=== PATIENT | male | born 1960 | race Caucasian/White ===

== ENCOUNTER 2017-06-27 04:49 | Inpatient (IN) | payer BC, OTHER ==
[2017-05-30 11:48] VITALS: Ht 162.6 cm; Wt 80.1 kg
--- NOTE | 2017-05-30 12:26 | PAT Medication Instructions ---
Service Date May 30, 2017. Current Home Medication List Creatine (Bulk) (Creatine), 1 DOSE PO BID Glutamine (Glutamine), 1 DOSE PO TID Multiple Vitamin (Multi-Vitamin Daily), 1 TAB PO QAM Protein (Protein), Unknown Dose TID [Bcaa's], 1 DOSE PO BID [Pre Work Out ], 1 DOSE PO DAILY [[Nitrogen oxide], 1 DOSE PO daily Medication Instructions For Your Scheduled Surgery - Hold the following medications 2 weeks prior to surgery: Creatine (Bulk) (Creatine), 1 DOSE PO BID Glutamine (Glutamine), 1 DOSE PO TID - Hold the following medications 7 days prior to surgery: [Bcaa's], 1 DOSE PO BID [Pre Work Out ], 1 DOSE PO DAILY [[Nitrogen oxide], 1 DOSE PO daily - Hold the following medications the morning of surgery: Multiple Vitamin (Multi-Vitamin Daily), 1 TAB PO QAM Protein (Protein), Unknown Dose TID - Take the following medications as scheduled the night before surgery: Protein (Protein), Unknown Dose TID If you have any questions please call us at [phone] or [phone] or [phone]
[2017-05-30 13:10] LABS: BASO % 0.4 %; BASO ABS # 0.02 K/uL (0-0.2); EOS % 4.2 %; EOS ABS # 0.22 K/uL (0-0.5); HEMATOCRIT 44.3 % (42-52); IG# 0.02 K/uL (0.00-0.02); LYMPH % 28.3 %; LYMPH ABS # 1.49 K/uL (1.2-3.4); MEAN CELL VOLUME 91.2 fL (80-100); MEAN CORPUSCULAR HEMOGLOBIN 32.9 pg (25-34); MEAN CORPUSCULAR HGB CONC 36.1 g/dl (32-36); MEAN PLATELET VOLUME 9.4 fL (7.4-10.4); MONO % 8.7 %; MONO ABS # 0.46 K/uL (0.11-0.59); NEUT ABS # 3.06 K/uL (1.4-6.5); PLATELET COUNT 219 K/uL (130-400); RED CELL DISTRIBUTION WIDTH CV 13.4 % (11.5-14.5); RED CELL DISTRIBUTION WIDTH SD 44.5 fL (36.4-46.3); WHITE BLOOD COUNT 5.27 K/uL (4.8-10.8)
--- NOTE | 2017-05-30 13:16 | DIAGNOSTIC IMAGING REPORT ---
CHEST 2 VIEWS ROUTINE CLINICAL HISTORY: Preoperative chest COMPARISON STUDY: 10/29/2014 FINDINGS: The cardiac and mediastinal contours are normal. There is no evidence of focal pulmonary consolidation. There is no evidence of failure. No pleural effusions are visualized.[ Chronic changes involve the chromic clavicular joints, possibly postsurgical. IMPRESSION: No active disease in the chest. Electronically signed by: Jean Carlos Grigsby M.D. 05/30/2017 1:15 PM Dictated Date/Time: 05/30/2017 1:14 PM
[2017-05-30 13:20] LABS: PTT PATIENT 25.7 SECONDS (21.0-31.0)
[2017-05-30 13:24] LABS: HEMOGLOBIN A1C 5.1 % (4.5-5.6)
[2017-05-30 14:31] LABS: ALBUMIN 3.7 gm/dl (3.4-5.0); CALCIUM 8.9 mg/dl (8.5-10.1); CREATININE 0.97 mg/dl (0.60-1.40); POTASSIUM 3.7 mmol/L (3.5-5.1)
--- NOTE | 2017-05-30 14:35 | HISTORY & PHYSICAL EXAMINATION ---
DATE OF ADMISSION: 06/27/2017 CHIEF COMPLAINT: Right knee pain. HISTORY OF PRESENT ILLNESS: Mr. Martinez is a 56-year-old male with a 5-year history of right knee pain. The patient rates his pain a 7/10. He has pain with his daily activities. He has limited standing and walking tolerance. Pain is worse with weightbearing. The patient has had multiple knee arthroscopies, injections and bracing over the years without relief. He has failed conservative treatment and is scheduled for a right knee replacement. PAST SURGICAL HISTORY: Multiple knee arthroscopies bilaterally, bilateral biceps tendon repair, bilateral shoulder arthroscopy and L4-L5 laminectomy. SOCIAL HISTORY: The patient rarely drinks alcohol. He denies tobacco use. He lives in a 2-davon home. He is from his ; however, she lives on the lower level. He is currently retired. FAMILY HISTORY: Positive for DVT in his mom. MEDICATIONS: Glutamine, carnitine, amino acids, multivitamin, vitamin D3, MCT oil and creatine. ALLERGIES: TAGAMET. REVIEW OF SYSTEMS: Positive for cough. Ten other systems reviewed, otherwise negative. PHYSICAL EXAMINATION: VITAL SIGNS: Height 5 foot 4 inches, weight 176 pounds. BMI is 30. GENERAL: This is a well-developed, well-nourished male who is alert and oriented x3. Mood and affect are appropriate. HEENT: Normocephalic, atraumatic. Mucous membranes are moist and intact. NECK: Supple without lymphadenopathy. HEART: Regular rate and rhythm without murmurs, rubs or gallops. LUNGS: Clear to auscultation without wheezes or rhonchi. ABDOMEN: Soft and nontender. Bowel sounds are equal and active. EXTREMITIES: No ecchymosis, redness or warmth. Thigh and calf are soft and nontender. He has mild effusion, no distal edema noted. He has neutral alignment. He does have medial and lateral scars from previous surgery. Range of motion is from 0-100 degrees. He has +1 laxity. He is neurovascularly intact with +5/5 strength. X-RAY EXAMINATION: AP and lateral views show joint space narrowing and osteophyte formation. IMPRESSION: Degenerative joint disease, right knee. PLAN: The patient will be admitted for a right total knee arthroplasty. He will plan on outpatient physical therapy upon discharge. We will do aspirin for DVT prophylaxis.
[2017-06-22] MEDS: [UNRECOGNIZED DRUG - REMARK] SCH (16:00)
[2017-06-23] MEDS: [UNRECOGNIZED DRUG - REMARK] SCH
[2017-06-27] VITALS (9 sets, daily range): BP systolic 100–119; BP diastolic 65–80; PULSE 66–91; TEMP 36.3–36.8; O2SAT 93–99
[~2017-06-27] VITALS: Ht 162.6 cm; Wt 80.1 kg
[~2017-06-27 04:49] MED LIST: CREAPOW7 PO; GLUT1POW PO; MULT-790 PO; PRE WORK OUT PO; PROT1POW; [UNRECOGNIZED DRUG - OTHER] PO; [UNRECOGNIZED DRUG - OTHER] PO
[2017-06-27] MEDS ORDERED: FAMOTIDINE 20 MG TAB PO SCH (06:00)
[2017-06-27] MEDS ORDERED: ACETAMINOPHEN 500 MG TAB PO SCH (06:00)
[2017-06-27] MEDS ORDERED: LACTATED RINGER'S 1000ML 1,000 ML IV SCH (06:00)
[2017-06-27] MEDS ORDERED: DEXAMETHASONE 4 MG TAB PO SCH (06:00)
[2017-06-27] MEDS ORDERED: CeleBREX 200 MG CAP PO SCH (06:00)
[2017-06-27] MEDS ORDERED: LACTATED RINGER'S 1000ML IV SCH (06:00)
[2017-06-27] MEDS ORDERED: CEFAZOLIN 2000MG IV PUSH 10 ML IV SCH (06:00)
[2017-06-27] MEDS ORDERED: METOCLOPRAMIDE HCL 10 MG TAB PO SCH (06:00)
[2017-06-27] MEDS ORDERED: GABAPENTIN 300 MG CAP PO SCH (06:00)
[2017-06-27] MEDS ORDERED: LACTATED RINGER'S 1000ML 500 ML IV SCH (06:00)
[2017-06-27] MEDS ORDERED: ROPIVACAINE 5MG/ML 30 ML 150 MG, BUPIVACAINE 0.5% MPF INJ 30 ML, EpINEphrine HCL INJ 0.... INFIL SCH ×8 (06:00)
[2017-06-27] MEDS ORDERED: BUPIVACAINE 0.5 % 5 MG/1 ML PF 10ML VIAL ONE (06:21)
[2017-06-27] MEDS ORDERED: BUPIVACAINE 0.25% 30 ML VIAL ONE (06:21)
[2017-06-27] MEDS: TRANEXAMIC ACID INJ 1,000 MG in SYRINGE 0 ML IV SCH ×2 (06:30→06:37)
[2017-06-27] MEDS ORDERED: ORTHO JOINT ANESTHETIC ONE (06:44)
[2017-06-27] MEDS ORDERED: BACITRACIN 50000 UNIT VIAL ONE (06:44)
[2017-06-27] MEDS ORDERED: POVIDONE-IODINE OP SOLN 30 ML BTL ONE (06:44)
[2017-06-27] MEDS ORDERED: LIDOCAINE HCL 2% 2 ML VIAL (20MG/ML) ONE (06:51)
[2017-06-27] MEDS ORDERED: MIDAZOLAM HCL 1 MG/ML 2ML VIAL ONE (06:51)
[2017-06-27] MEDS ORDERED: PROPOFOL IV EMULSION 10 MG/ML 20 ML VIAL IV ONE (06:51)
--- NOTE | 2017-06-27 06:59 | History & Physical Bridge Note ---
H&P Re-Evaluation Bridge Note: I have examined the patient, reviewed the History & Physical and in the interval since the performance of the History & Physical I have noted the following changes of clinical significance: No changes noted
--- NOTE | 2017-06-27 08:34 | [facility] Operative Report ---
Operative Report Operative Date Jun 27, 2017. Pre-Operative Diagnosis Right Knee Degenerative Joint Disease Post-Operative Diagnosis Right Knee Degenerative Joint Disease Procedure(s) Performed Right Total Knee Arthroplasty utilizing Tapia & Nephew journey to patient-matched total knee arthroplasty size 7 femur 7 tibia 13 Rosa [address] Jones Dyed Raw Stock Blower Feeder Surgeon(s) Al Garcia PA-C Estimated Blood Loss 5 cc Findings Patient presents floating history of valgus alignment of knee with bone to bone changes subchondral sclerosis bone deformity bone loss marginal osteophytes and varus alignment to his knee is been unresponsive to years and injections arthroscopies bracing presents for right total knee arthroplasty Specimens A: right knee bone and tissue Complication(s) None Disposition Recovery Room / PACU Indications Patient presents with severe end-stage DJD valgus alignment subchondral cystic formation sclerosis bone loss marginal osteophytes Antimony times conservative management including physical therapy anti-inflammatories relative rest activity modification multiple arthroscopies with removal of loose bodies presents today for right total knee arthroplasty Description of Procedure After proper prepping and draping of the Right lower extremity anterior midline incision was made over the region of the extensor extensor mechanism after meticulous hemostasis was obtained and maintained in subcutaneous tissues a medial parapatellar incision was made The patella was subluxed lateralward the medial lateral gutter were cleaned from any hypertrophic synovitis and scar tissue of the distal femoral block was placed and the distal femoral osteotomy cut was made subsequently the chamfers anterior and posterior osteotomy cuts were made utilizing the 4-in-1 block the tibia was subsequently subluxed anteriorward medial and ateral meniscal remnants were excised in their entirety remnants of the anterior and posterior cruciate ligaments were excised in their entirety excellent exposure of the proximal tibia was obtained the tibial osteotomy guide was placed on the proximal tibial osteotomy cut was made once again the knee was irrigated with copious amounts of sterile saline solution the patella was subsequently everted lateralward thickened scar tissue around the patella was removed the patella was subsequently cut utilizing a freehand technique and was drilled prepared for final preparation and placement of patella socially flexion-extension gaps were checked and the equal and symmetric trials were placed to the appropriate femoral and tibial trials with poly-spacer being placed for equal flexion and extension gaps and full range of motion including extension to 0 and flexion to 140 the trial components after having been taken to recovery range of motion was subsequently removed meticulous hemostasis was obtained and maintained subsequently a knee block injection of joint cocktail including ropivacaine 0.5% 150 mg. Bupivacaine 0.5 % epinephrine 1-200,030 mL's toradol 30 mg dexamethasone 4 mg ketamine 10 mg clonidine 100 micrograms normal saline solution 30 mg was infiltrated into the soft tissues of the posterior knee medial lateral gutters and periosteal synovium special attention was paid to protect neurovascular structures at all times subsequently trial components having been removed the knee was irrigated with sterile saline solution. debris was removed the proximal tibia was subsequently prepared and was made ready for the placement of the tibial component tibial component was also cemented and tamped into position the femoral component was subsequently placed and cemented in the position the patellar component was subsequently cemented in position because hemostasis once again obtained and maintained wound having been thoroughly irrigated with debridement and debridement lavage was performed as well as a medial parapatellar incision closed with #1 Vicryl in interrupted fashion subcutaneous was closed with #2 Vicryl skin was closed with skin clips. PA-C was necessary for prepping and drapping as well as wound closure of deep fascia Sub cutaneous tissue and skin and was necessary for the case. A sterile compressive dressing was placed patient was taken to recovery in stable condition of report dictated by Robert I attest to the content of the Intraoperative Record and any orders documented therein. Any exceptions are noted below. I attest to the content of the Intraoperative Record and any orders documented therein. Any exceptions are noted below.
[2017-06-27] MEDS ORDERED: EpHEDrine SULFATE INJ 50 MG/ML AMP IV PRN (08:45)
[2017-06-27] MEDS ORDERED: ATROPINE SULFATE 0.1 MG/ML 5ML SYR IV PRN (08:45)
[2017-06-27] MEDS ORDERED: KETOROLAC TROMETHAMINE 30 MG/ML VIAL IV. PRN (09:30)
[2017-06-27] MEDS ORDERED: ZOLPIDEM TARTRATE 5 MG TAB PO PRN (09:30)
[2017-06-27] MEDS ORDERED: SOD PHOSPHATE/SOD BIPHOSPHATE ENEMA 132 ML BTL PR PRN (09:30)
[2017-06-27] MEDS ORDERED: BISACODYL 10 MG SUPP PR PRN (09:30)
[2017-06-27] MEDS ORDERED: ALUMINUM/MAGNESIUM/SIMETH (MAALOX MAX) 30 ML UDC PO PRN (09:30)
[2017-06-27] MEDS ORDERED: MoRPHine SULFATE 2 MG/ML CARP IV PRN (09:30)
[2017-06-27] MEDS ORDERED: MAGNESIUM HYDROXIDE SUSP 30 ML UDC PO PRN (09:30)
[2017-06-27] MEDS ORDERED: TRAMADOL HCL 50 MG TAB PO PRN (09:30)
[2017-06-27] MEDS ORDERED: CEFAZOLIN IV 2,000 MG in DEXTROSE 5% 50ML 50 ML IV SCH (09:30)
[2017-06-27] MEDS ORDERED: ONDANSETRON INJ 2 MG/ML 2 ML VIAL IV PRN (09:30)
--- NOTE | 2017-06-27 09:52 | DIAGNOSTIC IMAGING REPORT ---
R KNEE 1 OR 2 VIEWS ROUTINE HISTORY: 56 years-old Male AP/LATERAL IN PACU RIGHT KNEE status post right knee total joint arthroplasty. Right knee osteoarthritis COMPARISON: None available TECHNIQUE: 3 views of the right knee FINDINGS: Postoperative views compatible with recent right knee total joint arthroplasty and patella resurfacing. Alignment is satisfactory. No periprosthetic fracture or retained foreign body. Expected soft tissue swelling and deep tissue air is noted about the knee with surgical drain in place. IMPRESSION: Status post right knee total joint arthroplasty and patellar resurfacing with satisfactory alignment. The above report was generated using voice recognition software. It may contain grammatical, syntax or spelling errors. Electronically signed by: Segundo Velásquez M.D. 06/27/2017 9:51 AM Dictated Date/Time: 06/27/2017 9:50 AM
--- NOTE | 2017-06-27 09:54 | Anesthesiology Progress Note ---
Anesthesia Post Op Note Date & Time Jun 27, 2017 at 09:54 Vital Signs Pain Intensity: 0 Vital Signs Past 12 Hours Date Time Temp Pulse Resp B/P (MAP) Pulse Ox O2 Delivery O2 Flow Rate FiO2 06/27/17 09:45 57 20 110/56 98 Nasal Cannula 2 06/27/17 09:35 66 20 101/60 98 Nasal Cannula 2 06/27/17 09:25 64 20 103/62 98 Nasal Cannula 2 06/27/17 09:16 36.2 80 20 111/59 94 Nasal Cannula 2 06/27/17 05:55 36.3 66 18 119/80 99 Room Air Notes Mental Status: alert / awake / arousable, participated in evaluation Pt Amnestic to Procedure: Yes Nausea / Vomiting: adequately controlled Pain: adequately controlled Airway Patency, RR, SpO2: stable & adequate BP & HR: stable & adequate Hydration State: stable & adequate Neuraxial Anesthesia: was administered, sensory block is resolving Anesthetic Complications: no major complications apparent
[2017-06-27] MEDS ORDERED: MoRPHine SULFATE 4 MG/ML 1 ML CARP\\VIAL IV PRN (11:30)
[2017-06-27] MEDS ORDERED: MoRPHine SULFATE 10 MG/ML CARP/VIAL IV PRN (11:30)
[2017-06-27] MEDS: D5W AND 1/2NSS + 20MEQ KCL 1,000 ML IV SCH ×2 (12:14→21:19)
[2017-06-27] MEDS: ACETAMINOPHEN 500 MG TAB PO SCH ×2 (13:21→21:18)
[2017-06-27] MEDS: CEFAZOLIN IV 2,000 MG in SYRINGE 0 ML IV SCH (16:31)
[2017-06-27] MEDS: SENNA 8.6 MG TAB PO SCH (21:00)
[2017-06-27] MEDS: ASPIRIN 81 MG ECTAB PO SCH (21:18)
[2017-06-27] MEDS: DOCUSATE SODIUM 100 MG CAP PO SCH (21:19)
[2017-06-28] MEDS: CEFAZOLIN IV 2,000 MG in SYRINGE 0 ML IV SCH (00:11)
[2017-06-28] MEDS: OXYCODONE HCL IR 5 MG TAB (IMMEDIATE RELEASE) PO PRN ×5 (00:11→22:06)
[2017-06-28 00:12] VITALS: BP 101/65; PULSE 74; TEMP 36.8; O2SAT 94
[2017-06-28 04:13] VITALS: BP 105/61; PULSE 75; TEMP 36.7; O2SAT 95
[2017-06-28] MEDS: ACETAMINOPHEN 500 MG TAB PO SCH ×3 (06:00→22:07)
[2017-06-28 06:33] LABS: HEMATOCRIT 35.8 % (42-52); HEMOGLOBIN 12.5 g/dL (14.0-18.0); MEAN CELL VOLUME 92.3 fL (80-100); MEAN CORPUSCULAR HEMOGLOBIN 32.2 pg (25-34); MEAN CORPUSCULAR HGB CONC 34.9 g/dl (32-36); MEAN PLATELET VOLUME 9.4 fL (7.4-10.4); PLATELET COUNT 220 K/uL (130-400); RED CELL DISTRIBUTION WIDTH CV 13.6 % (11.5-14.5); RED CELL DISTRIBUTION WIDTH SD 45.7 fL (36.4-46.3); WHITE BLOOD COUNT 14.34 K/uL (4.8-10.8)
[2017-06-28] MEDS: D5W AND 1/2NSS + 20MEQ KCL 1,000 ML IV SCH (06:41)
[2017-06-28 06:51] VITALS: BP 97/57; PULSE 74; TEMP 36.7; O2SAT 97
[2017-06-28 07:05] LABS: CALCIUM 8.1 mg/dl (8.5-10.1); CREATININE 1.2 mg/dl (0.60-1.40)
--- NOTE | 2017-06-28 07:34 | Orthopedic Progress Note ---
Orthopedic Progress Note Date of Service Jun 28, 2017. Subjective Post OP Day: 1 Reports: feeling well, Denies: complaints Objective calves soft nontender, N/V intact, dressing C/D/I, A&O x3, toes mobile, hemovac drainage (50ml latest shift) Date Time Temp Pulse Resp B/P (MAP) Pulse Ox O2 Delivery O2 Flow Rate FiO2 06/28/17 06:51 36.7 74 18 97/57 (70) 97 Room Air 06/28/17 04:13 36.7 75 15 105/61 (76) 95 Room Air 06/28/17 00:12 36.8 74 15 101/65 (77) 94 Room Air 06/28/17 00:00 Room Air 06/27/17 19:04 36.8 71 19 114/74 (87) 96 Nasal Cannula 06/27/17 15:20 Nasal Cannula 06/27/17 15:06 36.8 81 18 105/67 (80) 93 Room Air 06/27/17 13:13 36.8 91 16 113/74 (87) 95 Nasal Cannula 2.0 06/27/17 12:16 68 16 107/68 (81) 97 Nasal Cannula 2.0 06/27/17 10:55 75 16 106/67 (80) 97 Nasal Cannula 2.0 06/27/17 10:37 Nasal Cannula 2.0 06/27/17 10:36 68 16 112/70 (84) 96 Nasal Cannula 2.0 06/27/17 10:30 36.8 72 16 100/65 (77) 93 Nasal Cannula 2.0 06/27/17 10:27 97 Nasal Cannula 2.0 06/27/17 09:45 57 20 110/56 98 Nasal Cannula 2 06/27/17 09:35 66 20 101/60 98 Nasal Cannula 2 06/27/17 09:25 64 20 103/62 98 Nasal Cannula 2 06/27/17 09:16 36.2 80 20 111/59 94 Nasal Cannula 2 Laboratory Results 24 Hours: Test 06/28/17 06:06 Hematocrit 35.8 % Hemoglobin 12.5 g/dL Prothromb Time International Ratio 1.0 Prothrombin Time 10.9 SECONDS Assessment & Plan Assessment: POD 1 s/p Right TKA Plan: PT/OT Plan for home with OPPT Inhouse Planning Pain Management: Celebrex, Toradol, Ultram, Morphine, PO Tylenol, Oxy IR DVT Prophylaxis: TEDs, SCDs, ASA Discharge Planning Discharge Planning: home with oppt
[2017-06-28] MEDS: DOCUSATE SODIUM 100 MG CAP PO SCH ×2 (08:40→21:00)
[2017-06-28] MEDS: MULTIVITAMIN TAB PO SCH (08:41)
[2017-06-28] MEDS: PANTOprazole SOD 40 MG TAB PO SCH (08:41)
[2017-06-28] MEDS: ASPIRIN 81 MG ECTAB PO SCH ×2 (08:41→22:06)
--- NOTE | 2017-06-28 10:49 | Anesthesiology Progress Note ---
Anesthesia Post Op Note Date & Time Jun 28, 2017 at 10:48 Vital Signs Vital Signs Past 12 Hours Date Time Temp Pulse Resp B/P (MAP) Pulse Ox O2 Delivery O2 Flow Rate FiO2 06/28/17 07:40 Room Air 06/28/17 06:51 36.7 74 18 97/57 (70) 97 Room Air 06/28/17 04:13 36.7 75 15 105/61 (76) 95 Room Air 06/28/17 00:12 36.8 74 15 101/65 (77) 94 Room Air 06/28/17 00:00 Room Air Notes Mental Status: alert / awake / arousable, participated in evaluation Pt Amnestic to Procedure: Yes Nausea / Vomiting: adequately controlled Pain: adequately controlled Airway Patency, RR, SpO2: stable & adequate BP & HR: stable & adequate Hydration State: stable & adequate Neuraxial Anesthesia: was administered, sensory block resolved Anesthetic Complications: no major complications apparent
--- NOTE | 2017-06-28 12:37 | Discharge Instructions ---
Discharge Instructions Date of Service Jun 28, 2017. Admission Reason for Admission: Right Knee Osteoarthritis Discharge Discharge Diagnosis / Problem: right total knee replacement Discharge Goals Goal(s): Decrease discomfort, Improve function, Increase independence Activity Recommendations Activity Limitations: as noted below Weightbearing Status: Right weightbearing (as tolerated) . Instructions / Follow-Up Instructions / Follow-Up ACTIVITY RECOMMENDATIONS: SELF CARE INSTRUCTIONS AFTER TOTAL KNEE REPLACEMENT A. You may need to continue a physical therapy program after discharge from the hospital. There are several options available to you. Your doctor will assist you in selecting the best one for you. 1. An out-patient facility 2 to 3 times a week for therapy or home therapy. 2. Continue working on all exercises taught to you in the hospital. Your goals should be to increase bending of your knee to 90 degrees and beyond and to fully straighten your knee. B. You may progress at your own pace from walking with a walker or crutches to a cane; then to no assistive devices. C. Make walking a part of your daily routine. Be up as much as comfortable with rest periods throughout the day. Rest with leg elevation is very important. Use the ice wrap frequently for the first 3-4 weeks. D. There are no restrictions on activities. You may ride in a car, shop, participate in utility manager and all social activities. E. Wear the long elastic stockings (NIMISHA hose) 20 hours a day for 2 weeks after surgery. They can be removed several times a day for laundering and for a bath. F. You may shower, no tub baths until cleared by your doctor. SPECIAL CARE INSTRUCTIONS: VERY IMPORTANT TO READ AND REVIEW A. There are a few signs you need to watch for after you are home. Call [facility] if you notice any of the followin. Increased severe knee pain. Some pain is expected especially when you exercise. 2. Increased swelling in your leg or knee; pain or swelling of the calf muscle in either lower leg. 3. Any fluid drainage from the incision. 4. Shortness of breath or chest pain. B. Please call [facility] at if you have any concerns or questions about your operation or recovery. The doctor or his nurse will return your call promptly. C. You must take antibiotics before dental work, bladder, bowel or other surgery. Your doctor will provide you with a permanent care to carry describing this precaution. IMPORTANT: * REMEMBER TO TAKE ASPIRIN, 81 MG, TWICE DAILY FOR 4 WEEKS UNLESS OTHERWISE DIRECTED. THIS IS YOUR BLOOD THINNER. * HIGH RISK PATIENTS MAY BE PRESCRIBED A STRONGER BLOOD THINNER. THIS WILL BE PROVIDED AT DISCHARGE. * CALL IF INCREASED PAIN, REDNESS, DRAINAGE OR FEVER GREATER THAT 101. * WEAR NIMISHA HOSE 20 HOURS PER DAY FOR 2 WEEKS. * DERMABOND Prineo- This is a mesh tape dressing that is covered with glue. It should remain in place until the incision is properly healed, usually 10-14 days. This dressing is designed to naturally slough off. You may trim the excess mesh tape as it peels off. Incision may be briefly wet in a shower. Dry immediately by blotting with a clean, dry towel. Do not bath or swim until instructed by your doctor. Do not scratch, rub, or pick at the dressing. Do not apply any topical ointments or lotions until dressing is completely removed and/or instructed by your doctor. There may be a small piece of suture material at one end of your incision. Do not pull or trim this. If it is bothersome or catching on clothing, you may cover it with a band-aid. FOLLOW UP VISIT: If appointment is not already scheduled: Please call [facility] to make a follow-up appointment for 2 weeks after your surgery at . Current Hospital Diet Patient's current hospital diet: Regular Diet Discharge Diet Recommended Diet: Regular Diet Procedures Procedures Performed: Right Total Knee Arthroplasty utilizing Tapia [employer] Nephew journey to patient-matched total knee arthroplasty size 7 femur 7 tibia 13 Rosa 38 oval patella Pending Studies Studies pending at discharge: no Laboratory Results Hemoglobin A1c Test 05/30/17 12:40 Range/Units Estimated Average Glucose 100 mg/dl Hemoglobin A1c 5.1 4.5-5.6 % Medical Emergencies . Who to Call and When: Medical Emergencies: If at any time you feel your situation is an emergency, please call 911 immediately. . Non-Emergent Contact Non-Emergency issues call your: Primary Care Provider, Surgeon . "Provider Documentation" section prepared by Al Garcia. . VTE Core Measure Inpt VTE Proph given/why not?: Other Anticoagulation (ASA 81mg po bid x 1month) , T.EWalt Nguyen, SCD's [place] Drug Monitoring Program Search Results: patient reviewed within database, no issues identified
[2017-06-28 16:30] VITALS: BP 110/66; PULSE 84; TEMP 36.7; O2SAT 99
[2017-06-28] MEDS: SENNA 8.6 MG TAB PO SCH (21:00)
[2017-06-28] MEDS: CeleBREX 200 MG CAP PO SCH (22:06)
[2017-06-28 22:59] VITALS: BP 117/71; PULSE 101; TEMP 36.8; O2SAT 96
[2017-06-29] MEDS: OXYCODONE HCL IR 5 MG TAB (IMMEDIATE RELEASE) PO PRN ×3 (04:15→13:23)
[2017-06-29] MEDS: ACETAMINOPHEN 500 MG TAB PO SCH ×2 (05:27→13:23)
[2017-06-29 06:00] VITALS: BP 101/62; PULSE 68; TEMP 36.8; O2SAT 94
[2017-06-29 07:14] VITALS: BP 107/67; PULSE 82; TEMP 36.7; O2SAT 96
[2017-06-29] MEDS: ASPIRIN 81 MG ECTAB PO SCH (07:19)
[2017-06-29] MEDS: PANTOprazole SOD 40 MG TAB PO SCH (07:20)
[2017-06-29] MEDS: MULTIVITAMIN TAB PO SCH (07:20)
[2017-06-29] MEDS: DOCUSATE SODIUM 100 MG CAP PO SCH (07:20)
[2017-06-29] MEDS: CeleBREX 200 MG CAP PO SCH (07:21)
--- NOTE | 2017-06-29 08:45 | Orthopedic Progress Note ---
Orthopedic Progress Note Date of Service Jun 29, 2017. Subjective Post OP Day: 2 Reports: feeling well, complaints (pain in the knee this AM) Additional Notes: Pt states he feels he overdid his exercises yesterday and wasn't taking his pain meds regularly which he contributes his pain to. No other complaints. Objective calves soft nontender, N/V intact, incision C/D/I, A&O x3, toes mobile Date Time Temp Pulse Resp B/P (MAP) Pulse Ox O2 Delivery O2 Flow Rate FiO2 06/29/17 07:14 36.7 82 18 107/67 (80) 96 Room Air 06/29/17 06:00 36.8 68 16 101/62 (75) 94 Room Air 06/29/17 00:40 Room Air 06/28/17 22:59 36.8 101 15 117/71 (86) 96 Room Air 06/28/17 17:00 Room Air 06/28/17 16:30 36.7 84 19 110/66 (81) 99 Room Air Assessment & Plan Assessment: POD 2 s/p Right TKA Plan: PT/OT Plan for home with OPPT today Inhouse Planning Pain Management: Celebrex, Ultram, Morphine, PO Tylenol, Oxy IR DVT Prophylaxis: TEDs, SCDs, ASA Discharge Planning Discharge Planning: home with oppt
[2017-06-29] MEDS ORDERED: CLB200 PO (08:51)
[2017-06-29] MEDS ORDERED: SENN-61 PO (08:51)
[2017-06-29] MEDS ORDERED: RXC5 PO (08:51)
[2017-06-29] MEDS ORDERED: ACET-24 PO (08:51)
[2017-06-29] MEDS ORDERED: ASPEC81 PO (08:51)
[2017-06-29 10:50] VITALS: BP 107/67; PULSE 82; TEMP 36.7; O2SAT 96
--- NOTE | 2017-07-01 16:04 | Discharge Summary ---
Orthopedic Discharge Summary Admission Date/Reason Jun 27, 2017 at 09:26 Right Knee Osteoarthritis. Discharge Date/Disposition Jun 29, 2017 Home Diagnosis Principal Diagnosis: Right knee osteoarthritis Procedure(s) Performed Right Total Knee Arthroplasty utilizing Tapia [employer] Nephew journey to patient-matched total knee arthroplasty size 7 femur 7 tibia 13 Rosa 38 oval patella Consultations NONE Medication Reconciliation New Medications: Acetaminophen (Sb Non-Aspirin Extra Stre) 500 Mg Tab 1000 MG PO Q8H for 21 Days, #126 TAB Aspirin (Aspirin EC Low Dose) 81 Mg Ectab 81 MG PO BID for 30 Days Celecoxib (Celebrex) 200 Mg Cap 200 MG PO BID, #60 CAP Oxycodone HCl (Oxycodone HCl) 5 Mg Tab 5-10 MG PO Q4H PRN for Pain, #60 TAB Senna (Senokot) 8.6 Mg Tab 17.2 MG PO HS, #30 TAB Continued Medications: Creatine (Bulk) (Creatine) 1 Pow Pow 1 DOSE PO BID Glutamine (Glutamine) 1 Pow Pow 1 DOSE PO TID Multiple Vitamin (Multi-Vitamin Daily) 1 Tab Tab 1 TAB PO QAM Protein (Protein) Unknown Strength Pow Unknown Dose TID [Bcaa's] () 1 DOSE PO BID PT REPORTS BCAA'S ARE AMINO ACIDS [Pre Work Out ] () 1 DOSE PO DAILY USES PRIOR TO WORK OUT [[Nitrogen oxide] () 1 DOSE PO daily takes with pre work out supplement Admission Physical Exam As per Admitting History & Physical. Hospital Course Patient was a same day admission after undergoing a successful right TKA. he tolerated the procedure well. Post-operatively, his activity was progressed and well tolerated. Please refer to daily progress notes and PT notes for complete details. After exam on 06/29/17, patient felt to be stable for discharge home with OPPT. Patient will f/u in the office in 2 weeks for further evaluation including x-rays and incision check, sooner if having any issues or concerns. Below are pertinent labs/studies during their hospital stay: Last Vital Signs Documentation Date Time Temp Pulse Resp B/P (MAP) Pulse Ox O2 Delivery O2 Flow Rate FiO2 06/29/17 10:50 36.7 82 18 96 Room Air 06/29/17 07:14 107/67 (80) 06/27/17 13:13 2.0 Last Resulted CBC 06/28/17 06:06 Last Resulted BMP 06/28/17 06:06 Discharge Instructions Please refer to the electronic Patient Visit Report (Discharge Instructions) for additional information.
== END 2017-06-29 13:30 | disposition home health service (06) | DRG 470 ==
LOC: C.ACU 04:49 → C.3E 09:26 → ENRESERV 09:48
PROVIDERS: ADMIT Orthopaedic Surgery; ATTEND Orthopaedic Surgery
PROC: 0SR Lower Joints, Replacement (ICD-10-PCS; principal; 2017-06-27 07:00)
DX: M17.11 Unilateral primary osteoarthritis, right knee (principal)

== ENCOUNTER 2019-07-08 06:22 | Observation (INO) ==
[2019-07-08] MEDS ORDERED: LIDOCAINE HCL 1% 20 ML VIAL ONE (07:38)
[2019-07-08] MEDS ORDERED: BUPIVACAINE 0.5 % 5 MG/1 ML PF 10ML VIAL ONE (07:38)
[2019-07-08] MEDS ORDERED: BACITRACIN INJ 50,000 UNIT VIAL ONE (07:39)
--- NOTE | 2019-07-08 07:58 | History & Physical Bridge Note ---
Date of Service July 08, 2019 History & Physical Bridge Note I have examined the patient, reviewed the History & Physical and in the interval since the performance of the History & Physical I have noted the following changes of clinical significance: no changes noted
--- NOTE | 2019-07-08 07:59 | Pre Anesthesia Assessment ---
Date of Service July 08, 2019 Pre Sedation Assessment Vital Signs Temp Pulse Resp BP Pulse Ox 07/08/19 07:13 37.1 C 61 16 138/84 99 Cardiovascular + bradycardic Respiratory normal respiratory effort, lungs clear to auscultation Pre-Sedation Airway Assessment Smoking Status: Never smoker Hx Sleep Apnea: Yes Short, Thick Neck: No Thyromental Distance: > or= 3.5 Finger Breadths Oral Cavity: + WNL Mallampati Class: III ASA: ASA3 NPO Status Date of Last Intake of Fluids: 07/07/19 Time of Last Intake of Fluids: 22:00 Date of Last Intake of Solid Food: 07/07/19 Time of Last Intake of Solid Foods: 22:00 Procedure Planning Contraindications for Sedation: none Current Medications Reviewed: Yes Notes The planned sedation has been discussed with the patient. Informed Consent was obtained. I have identified the patient, determined the appropriateness of sedation and have assessed the patient immediately prior to the procedure. All medicine(s) and interventions are by my order.
[2019-07-08] MEDS ORDERED: CEFAZOLIN 250 MG/ML 1 GM VIAL ONE (08:01)
[2019-07-08] MEDS ORDERED: MIDAZOLAM HCL 5 MG/ML 1 ML VIAL ONE ×2 (08:01→08:33)
[2019-07-08] MEDS ORDERED: fentaNYL citrate 100 MCG/2 ML VIAL ONE ×2 (08:01→08:33)
[2019-07-08] MEDS ORDERED: ACETAMINOPHEN 325 MG TAB PO PRN (09:36)
--- NOTE | 2019-07-08 09:38 | Post Anesthesia Assessment ---
Date of Service July 08, 2019 Post Sedation Assessment Vital Signs Temp Pulse Resp BP Pulse Ox 07/08/19 07:13 37.1 C 61 16 138/84 99 Recovery Score Activity: Moves 4 extremities Respiration: Deep Breath/Cough Circulation: +/-20% PreAnes Value Consciousness: Fully Awake Oxygen Saturation: > 92% On Room Air Discharge Sedation Level of Care: Fast Track Phase II Post Sedation Plan On clinical assessment, the patient appears to have tolerated the sedation without complications. Patient is recovering as anticipated. Patient will continue to be monitored by nursing and may be discharged when sedation discharge criteria are met per below protocol. Upon Completions of procedure up to 15 minutes continue every 5 minute vital signs and the P.A.R. score; then discharge to a Phase I or Fast Track to Phase II per the following guidelines: * Discharge Patient to appropriate Phase II area if PAR is 8 or greater or return to pre- procedure baseline. The post - procedure orders will be as directed. * If PAR score is less than 8 or not return to pre-procedure baseline then patient will follow Phase I monitoring till PAR is reached for Phase II. The Phase I may be done in procedure room or may call to secure a Phase I area. * If naloxone or flumazenil are used for reversal, hold in Phase I for continued monitoring from when last reversal dose was given for a minimum of 60 minutes or longer pending the nurse and/or physician discretion of patient condition before discharge to Phase II. Please call the Sedation Physician to re-evaluate and complete post-note for discharge to Phase II area. Do NOT discharge from procedure sedation or Phase 1 until post- sedation evaluation note is complete by procedure /sedation MD Sedation Discharge Instructions to be given to the patient at discharge to home.
--- NOTE | 2019-07-08 09:38 | Operative Report ---
Post Operative Report Pre & Post Diagnosis Intermittent CHB Operation Date: 07/08/19 08:00 <No data on this case meets the specified criteria> I identified the patient and participated in the time-out.: Yes Procedure Operation Date: 07/08/19 08:00 Actual Procedures p Pacer with A/V Leads (Dual) - Misa Prado DO Surgeon Misa Prado, DO Fender Finisher none Estimated Blood Loss 10 Findings Consistent with Post-Op Diagnosis Specimens none Description of Procedure see official report I attest to the content of the Intraoperative Record and any orders documented therein. Any exceptions are noted below.
--- NOTE | 2019-07-08 09:44 | Discharge Summary ---
Date of Service July 09, 2019 Admission HPI Per Admitting Provider +lightheadedness and dizziness with near syncope and syncope due to intermittent CHB Admission Exam Per Admitting Provider aaox3, NAD NC/AT, EOMI Supple No JVD Nrl S1/S2, No murmur CTA b/l no w/r/r soft nt/nd no LE edema b/l skin intact no focal deficits Principal Diagnosis Intermittent CHB s/p dual chamber ppm Discharge Exam aaox3, NAD NC/AT, EOMI Supple No JVD Nrl S1/S2, No murmur CTA b/l no w/r/r soft nt/nd no LE edema b/l skin intact no focal deficits left pectoral incision intact, no hematoma mild ecchymosis Discharge Data Allergies Allergy/AdvReac Type Severity Reaction Status Date / Time cimetidine Allergy Unknown "swelled Verified 07/08/19 07:09 up" Procedures Performed Operation Date: 07/08/19 08:00 Actual Procedures p Pacer with A/V Leads (Dual) - Misa Prado DO Ordered Studies CXR: No PTX, leads in place ECG: SR Pacemaker Interrogation: Normal function 07/08/19 06:56 CL Cath Imgs for PACS use only Routine Hospital Course (1) Intermittent complete heart block: Total Time Total Time Spent Total Time Spent (In Minutes): 35 Total Time Includes: Examination of the Patient, Discharge Planning, Medication Reconciliation and Other Discharge Plan Discharge Items Reason For Visit: Intermittent CHB Discharge Diagnosis: intermittent CHB s/p dual chamber ppm Condition on Discharge: Good Activity: As commented below Activity Comment: Do not lift the left elbow over the left shoulder until sunday08/15/2019 Lifting: No more than 10 pounds Lifting Comment: do not lift more than 10 pounds with the left arm until sunday08/15/2019 Bathing: Keep incision dry Bathing Comment: keep dressing on & dry until sunday07/15/2019; then can let water run over Sexual Activity: After two weeks Driving/Machine Use: Resume 1 day after discharge Non-emergency contact: Librarian Specialist Call non-emergency contact if: you have any medication questions Diet: Resume previous diet Addtl Attending Provider Instructions: Device and wound check as scheduled next week at [facility] Keep incision dry and dressing dry and on until Sunday07/15/2019-you will need to sponge bath around this If you notice any concerns at the incision area call my office Pending Studies at Discharge: No Stand-Alone Forms: My [facility] Prescriptions: Continued sertraline [Zoloft] 50 mg Tablet 75 mg PO DAILY RF: 0 Admission Data Attending Provider: Misa Prado Primary Care Provider: Ryan Campbell Other Providers: Abhijeet Jones ; Antonio Giraldo
--- NOTE | 2019-07-08 10:35 | Operative Report ---
DATE OF OPERATION: 07/08/2019 PREOPERATIVE DIAGNOSES: Intermittent complete heart block and syncope. POSTOPERATIVE DIAGNOSES: Intermittent complete heart block and syncope. PROCEDURE: Dual chamber rate responsive permanent pacemaker under fluoroscopic guidance along with peripheral venogram. SURGEON: Misa Prado DO CUSTOMER SUCCESS ASSOCIATE: None. BLOOD LOSS: 10 mL. URINE OUTPUT: Not applicable. SPECIMENS: None. FINDINGS: See below. DRAINS: None. ANESTHESIA: Monitored conscious sedation administered under my supervision by Salvador Lauren. Start time 0818 and end time 09, a total of 6 mg of Versed and 150 mcg of fentanyl. INTRAVENOUS FLUIDS: 32 mL. ANTIBIOTICS: Two grams of Ancef. CONTRAST: 10 mL. INDICATIONS: This is a 58-year-old female with past medical history for intermittent complete heart block seen on a Zio patch in 06/2019, syncope, history of anabolic steroid use. Due to the significant intermittent complete heart block up to 10 seconds and history of syncope, he was recommended dual chamber pacemaker. CONSENT: Consent was obtained prior to the patient going into electrophysiology lab. The patient was informed of the risks, benefits and alternative procedure. Risks include but not limited to sudden cardiac , cardiac arrhythmias, cerebrovascular accident, myocardial infarction, injury to the blood vessels, chamber of the heart, lung, bleeding, and infection. The patient understood these risks and consented for the procedure as planned. Informed consent was obtained. DESCRIPTION OF THE PROCEDURE: The patient was brought into the electrophysiology lab in fasting state. He was connected to continuous cardiac monitoring. A timeout was performed to ensure patient identity and procedure correctly. The patient was prepped and draped over the left infraclavicular space in normal surgical standard fashion. Monitored conscious sedation was given throughout the procedure for patient's comfort level. Hull precautions were maintained throughout the procedure. A 20 mL of 1% lidocaine, bupivacaine mixture were given in the left deltopectoral groove. Incision was made in left deltopectoral groove. I started to try to dissect out the cephalic vein, but it was difficult with all the muscle, so I did a peripheral venogram and opted to stick the axillary vein without any problems. Guidewire was inserted without any resistance. An 8-[place] sheath was inserted over the guidewire without any resistance. Dilator was removed and a second guidewire was inserted through the 8-[place] sheath to allow for retained venous access. Sheath was removed, flushed, dilator reinserted over it and it was reinserted over one of the guidewires. The guidewire and dilator removed and the right ventricular lead was advanced into right ventricle and positioned into right ventricular septum, mid septum under fluoroscopic guidance. There was adequate pacing and sensing thresholds and no diaphragmatic stimulation with high output pacing. The 8-[place] sheath was peeled away and lead was fixated to pectoralis muscle using 0 silk suture. A 7-[place] sheath was inserted over the retained guidewire without any resistance. Guidewire and dilator removed. The right atrial lead was then advanced into right atrium and positioned into right atrial appendage under fluoroscopic guidance. There was adequate pacing and sensing thresholds and no diaphragmatic stimulation with high output pacing. The 7-[place] sheath was peeled away and lead was fixated to pectoralis muscle using 0 silk suture. A pacemaker pocket was created using blunt dissection over the pectoralis muscle within the pectoral fascia. The pocket was flushed with copious amounts of bacitracin saline wash and inspected for hemostasis. Pulse generator was then attached to the leads, making sure that the pins were in appropriate position, passed set screw and set screws were all tightened. A Tyrx pouch was used as well since patient does take anabolic steroid use. Then, the pacemaker was placed in the pocket, making sure that the leads were lying flat beneath the device. A stay stitch using 0 silk suture was used to secure this pectoralis muscle. The incision was then closed in 3-layer fashion with 2-0 Vicryl interrupted suture followed by 3-0 Vicryl interrupted suture followed by a 4-0 Monocryl running stitch and Dermabond was applied. Dermabond was applied followed by Jose and micropore dressing. EQUIPMENT: 1. Pulse generator is a Medtronic Deana XT DR NEVAEH Gill [id number], serial number [id number]. 2. The antibiotic pouch is reference [id number], lot number [id number], expiration 07/11/2019. 3. Right atrial lead Medtronic 5076-52 cm, serial number [id number]. 4. Right ventricular lead, Medtronic 5076-58 cm, serial number [id number]. INTRAOPERATIVE TESTIN. Right atrial lead: P-wave 3.1 millivolts, impedance was 494 ohms, threshold 0.5 volts at 0.4 milliseconds. 2. Right ventricular lead: R-wave 10 millivolts, impedance 874 ohms, threshold 0.4 volts at 0.4 milliseconds. FINAL PARAMETERS THROUGH THE DEVICE: 1. Right atrial lead: P-wave 3 millivolts, impedance 494 ohms, threshold 0.5 volts at 0.4 milliseconds. 2. Right ventricular lead: R-wave 10.5 millivolts, impedance 874 ohms, threshold 0.5 volts at 0.4 milliseconds. FINAL PARAMETERS: MVP-R 60/130, right atrial amplitude 3.5 volts, pulse width 0.4 milliseconds, sensitivity 0.3 millivolts. Right ventricular amplitude 3.5 volts, pulse width 0.4 milliseconds, sensitivity 1.2 millivolts. IMPRESSION: Successful implantation of a dual chamber rate responsive permanent pacemaker under fluoroscopic guidance along with peripheral venogram secondary to intermittent complete heart block and syncope. PLAN: Monitor patient overnight, 12-lead ECG, chest x-ray. He is not allowed to lift left elbow or left shoulder for 1 month. He cannot lift more than 10 pounds with the left arm for 2 weeks. He has to keep the dressing on and dry until next Sunday07/15/2019 and he has a wound check next week as well. I attest to the content of the Intraoperative Record and any orders documented therein. Any exception s are noted below.
[2019-07-08] MEDS ORDERED: Nursing to Pharmacy Communication ONE (14:01)
[2019-07-08] MEDS: OXYCODONE/ACETAMINOPHEN 5mg/325mg TAB PO PRN (14:42)
[2019-07-09] MEDS: OXYCODONE/ACETAMINOPHEN 5mg/325mg TAB PO PRN ×2 (00:26→08:12)
--- NOTE | 2019-07-09 08:31 | XRay Report ---
XR chest 2V PA/lateral HISTORY: 58 years-old Male post ppm status post placement of a left subclavian pacer COMPARISON: Chest radiograph 04/18/2018 TECHNIQUE: PA and lateral views of the chest FINDINGS: Cardiomediastinal and hilar silhouettes are within normal limits. Status post placement of a left sub clavian pacer with leads overlying the expected locations of the right atrium and right ventricle. Ex pected postoperative swelling with deep tissue air of the left chest wall. No postprocedural pneumoth orax. No pleural effusion, overt pulmonary edema or focal airspace consolidation. Calcified granuloma versus bone island projects over the anterior right seventh rib. Degenerative changes of the shoulde rs and spine. Limited lateral view secondary to upper extremity positioning. IMPRESSION: Status post placement of a left subclavian pacer. No postprocedural pneumothorax. ACT 112: Negative or not required by law. The above report was generated using voice recognition software. It may contain grammatical, syntax o r spelling errors. Electronically signed by: Segundo Velásquez M.D. 07/09/2019 8:30 AM
[2019-07-09] MEDS ORDERED: SERTRALINE HCL 50 MG TABLET PO SCH (09:00)
--- NOTE | 2019-07-09 17:34 | Electrocardiogram Report ---
Test Reason : Blood Pressure : / mmHG Vent. Rate : 060 BPM Atrial Rate : 060 BPM P-R Int : 218 ms QRS Dur : 090 ms QT Int : 438 ms P-R-T Axes : 054 -57 037 degrees QTc Int : 438 ms Atrial-paced rhythm with prolonged AV conduction Left anterior fascicular block Cannot rule out Inferior infarct (masked by fascicular block?) , age undetermined Abnormal ECG When compared with ECG of 18-APR-2018 08:34, Electronic atrial pacemaker has replaced Sinus rhythm Confirmed by Dallas Restrepo ([id number]) on 07/09/2019 5:34:13 PM Referred By: Misa Prado Confirmed By:Quintin Restrepo
== END 2019-07-09 12:00 | disposition home or self-care (01) ==
LOC: 1E 06:22 → EP 06:22 → 2S 14:56